=== PATIENT | female | born 1945 ===

== ENCOUNTER 2021-02-05 07:11 | Day surgery (SDC) | payer OTHER | END 2021-02-05 11:30 | disposition home or self-care (01) | LOC: AMB-ENDOS 07:11 | PROVIDERS: ATTEND Surgery | DX: K63.5 Polyp of colon (principal); K64.8 Other hemorrhoids; Z12.11 Encounter for screening for malignant neoplasm of colon; Z20.822 Contact with and (suspected) exposure to COVID-19 ==